=== PATIENT | male | born 1980 | race African-American/Black ===

== ENCOUNTER 2025-04-19 14:50 | Emergency (ER) | payer MEDICAID ==
[~2025-04-19] VITALS: Ht 177.8 cm; Wt 80.0 kg
[2025-04-19 14:53] VITALS: O2SAT 99
[2025-04-19] MEDS ORDERED: LACTATED RINGERS 1,000 ML IV ONE (15:00)
[2025-04-19] MEDS ORDERED: INSULIN LISPRO 100 UNITS/ML SUBCUT ONE (15:00)
[2025-04-19 15:34] LABS: BASOPHILS % 0.4 % (0.0-2.0); EOSINOPHILS % 1.4 % (0.0-5.0); HEMATOCRIT. 39.8 % (42.0-52.0); HEMOGLOBIN. 13.6 g/dL (14.0-18.0); LYMPHOCYTES % 36.5 % (20.0-50.0); MEAN CORPUSCULAR HEMOGLOBIN 27.9 pg (28.0-32.0); MEAN CORPUSCULAR HGB CONC 34.1 g/dL (31.0-37.0); MEAN CORPUSCULAR VOLUME 81.7 fL (80.0-94.0); MONOCYTES % 7.2 % (2.0-8.0); NEUTROPHILS % 54.5 % (40.0-76.0); PLATELET 170 x1000/uL (130-400); RED BLOOD CELL COUNT 4.87 mill/uL (4.7-6.1); RED CELL DISTRIBUTION WIDTH 13.6 % (11.6-14.6); WHITE BLOOD COUNT 5.5 x1000/uL (4.5-11.0)
[2025-04-19 15:37] LABS: CHLORIDE 104 mEq/L (98-107); POTASSIUM 3.7 mEq/L (3.5-5.1); SODIUM 138 mEq/L (136-145)
[2025-04-19 15:38] LABS: CALCIUM 8.7 mg/dL (8.7-10.4); CARBON DIOXIDE 27 mEq/L (21-32)
[2025-04-19 15:43] LABS: GLUCOSE 385 mg/dL (70-105); UREA NITROGEN BLOOD 6 mg/dL (9-23)
[2025-04-19] MEDS ORDERED: MAGN400C MT (16:28)
[2025-04-19] MEDS: INSULIN LISPRO 100 UNITS/ML SUBCUT SCH (18:28)
[2025-04-19 18:31] VITALS: BP 133/75; PULSE 74; RESP 15; TEMP 36.9; O2SAT 100
== END 2025-04-19 18:33 | disposition home or self-care (01) ==
LOC: ER 14:50
DX: S00.12XA Contusion of left eyelid and periocular area, initial encounter (principal); E11.65 Type 2 diabetes mellitus with hyperglycemia; E83.42 Hypomagnesemia; Z79.899 Other long term (current) drug therapy; X58.XXXA Exposure to other specified factors, initial encounter; Y93.89 Activity, other specified; Y92.89 Other specified places as the place of occurrence of the external cause; Y99.8 Other external cause status
CPT/HCPCS: 99284; 80048; 83735; 85025; 36415; 93005; 96372; J1815; J7120